=== PATIENT | female | born 1995 | race Caucasian/White ===

== ENCOUNTER 2019-01-28 07:30 | Inpatient (IN) ==
[2019-01-28] MEDS ORDERED: ONDANSETRON 4 MG/2 ML VIAL IV PRN ×2 (08:26→15:44)
[2019-01-28] MEDS ORDERED: LACTATED RINGERS 1,000 ML IV PRN (08:26)
[2019-01-28] MEDS ORDERED: NALOXONE 0.4 MG/ML VIAL IV PRN (08:28)
[2019-01-28] MEDS ORDERED: ePHEDrine 50 MG/ML AMP IV PRN ×2 (08:28)
[2019-01-28] MEDS ORDERED: diphenhydrAMINE 50 MG/1 ML VIAL IV PRN ×2 (08:28)
[2019-01-28] MEDS ORDERED: hydrOXYzine HCL 25 MG/1 ML VIAL IM PRN (08:28)
[2019-01-28] MEDS ORDERED: CITRIC ACID/SODIUM CITRATE 30 ML UDCUP PO ONE (08:28)
[2019-01-28] MEDS ORDERED: LACTATED RINGERS 250 ML IV PRN (08:28)
[2019-01-28] MEDS ORDERED: ONDANSETRON 4 MG/2 ML VIAL IV ONE (08:28)
[2019-01-28] MEDS ORDERED: FAMOTIDINE 20 MG/2 ML VIAL IV ONE (08:28)
[2019-01-28] MEDS ORDERED: PROMETHAZINE 25 MG/1 ML VIAL IM ONE (08:28)
[2019-01-28] MEDS ORDERED: LACTATED RINGERS 1,000 ML IV SCH ×2 (08:30)
[2019-01-28] MEDS ORDERED: fentaNYL 2 MCG/ROPIV 0.2% EPID 100 ML EPIDURAL SCH (08:30)
[2019-01-28] MEDS ORDERED: OXYTOCIN/LR 20 UNIT/1,000 ML BAG IV SCH (08:30)
[2019-01-28 08:45] LABS: Basophils % 0.1 % (0.0-0.8); Eosinophils # 0.1 10*3/uL (0.0-0.87); Eosinophils % 0.9 % (0.00-10.9); Hematocrit 33.6 VOL% (35.7-47.0); Hemoglobin 10.3 GM/DL (12.0-16.0); Immature Granulocytes % 0.5 %; Immature Granulocytes Absolute 0.05 #; Lymphocytes # 1.3 10*3/uL (1.4-4.0); Lymphocytes % 14.3 % (21.3-54.2); Mean Corpuscular HGB Conc 30.7 GM/DL (32-36); Mean Corpuscular Volume 86.6 FL (87-102); Mean Platelet Volume 10.3 FL (9.6-12.0); Monocytes % 6.8 % (1.7-12.7); Neutrophils % 77.4 % (38.7-73.9); Platelet Count 188 T/CUMM (130-400); Red Blood Count 3.88 MC/CUMM (3.8-5.5); Red Cell Distribution Width 14.4 % (9.3-17.3); White Blood Count 9.4 T/CUMM (4-12)
[2019-01-28 12:18] LABS: Apearance,Urine CLEAR (Clear); Bilirubin,Urine Negative (Negative); Blood, Urine Negative (Negative); Glucose,Urine (UA) Negative (Negative); Ketones,Urine 20 mg/dL (Negative); Nitrite,Urine Negative (Negative); Protein,Urine Negative; RBC,Urine 1 /HPF (0-4); Squamous Epithelial Cell,Urine Occasional /HPF (0-10); Urine Color Straw (Yellow); Urine Specific Gravity 1.005 (1.001-1.035); Urine Urobilinogen < 2.0 EU/DL (0.2-1.0); WBC,Urine 1 /HPF (0-6)
[2019-01-28] MEDS ORDERED: miSOPROStol 200 MCG TABLET ONE (15:01)
[2019-01-28] MEDS ORDERED: CARBOPROST TROMETHAMINE 250 MCG/ML AMP IM ONE (15:02)
[2019-01-28] MEDS ORDERED: METHYLERGONOVINE 0.2 MG/1 ML AMP ONE (15:02)
[2019-01-28] MEDS ORDERED: BUTORPHANOL 1 MG/ML VIAL ONE (15:03)
[2019-01-28] MEDS ORDERED: LIDOCAINE 1% 50 ML VIAL ONE (15:03)
[2019-01-28] MEDS ORDERED: oxyCODONE/ACETAMINOPHEN 5-325 MG TABLET PO PRN ×2 (15:44)
[2019-01-28] MEDS ORDERED: BENZOCAINE 20%/MENTHOL 0.5% SPRAY 56 GM CAN TOP PRN (15:44)
[2019-01-28] MEDS ORDERED: LANOLIN 50% CREAM 0.3 OZ TUBE TOP PRN (15:44)
[2019-01-28] MEDS ORDERED: DIPH/TET/ACEL PERT BOOSTER VACCINE 0.5 ML VIAL IM ONE (15:44)
[2019-01-28] MEDS ORDERED: MEASLES/MUMPS/RUBELLA VACCINE 0.5 ML VIAL SUBCUT ONE (15:44)
[2019-01-28] MEDS ORDERED: HYDROCORTISONE 2.5% RECTAL CREAM 30 GM TUBE TOP PRN (15:44)
[2019-01-28] MEDS ORDERED: ACETAMINOPHEN 325 MG TABLET PO PRN (15:44)
[2019-01-28] MEDS ORDERED: BISACODYL 10 MG SUPP RECTAL PRN (15:44)
[2019-01-28] MEDS ORDERED: RHO(D) IMMUNE GLOBULIN 300 MCG SYRINGE IM ONE (16:00)
[2019-01-28] MEDS ORDERED: OXYTOCIN/LR 20 UNIT/1,000 ML BAG IV ONE (16:00)
[2019-01-28] MEDS ORDERED: WITCH HAZEL PADS 100/JAR TOP PRN (16:30)
[2019-01-28] MEDS: IBUPROFEN 800 MG TABLET PO PRN (20:52)
[2019-01-28] MEDS: DOCUSATE SODIUM 100 MG CAPSULE PO SCH (20:52)
[2019-01-29 05:26] LABS: Basophils % 0.2 % (0.0-0.8); Eosinophils # 0.1 10*3/uL (0.0-0.87); Eosinophils % 1.2 % (0.00-10.9); Hematocrit 29.8 VOL% (35.7-47.0); Hemoglobin 9.4 GM/DL (12.0-16.0); Immature Granulocytes % 0.4 %; Immature Granulocytes Absolute 0.05 #; Lymphocytes # 1.6 10*3/uL (1.4-4.0); Lymphocytes % 13.7 % (21.3-54.2); Mean Corpuscular HGB Conc 31.5 GM/DL (32-36); Mean Corpuscular Volume 85.4 FL (87-102); Mean Platelet Volume 10.9 FL (9.6-12.0); Monocytes % 7.8 % (1.7-12.7); Neutrophils % 76.7 % (38.7-73.9); Platelet Count 164 T/CUMM (130-400); Red Blood Count 3.49 MC/CUMM (3.8-5.5); Red Cell Distribution Width 14.1 % (9.3-17.3); White Blood Count 11.6 T/CUMM (4-12)
[2019-01-29] MEDS: DOCUSATE SODIUM 100 MG CAPSULE PO SCH ×2 (08:44→20:34)
[2019-01-29] MEDS: IBUPROFEN 800 MG TABLET PO PRN (19:25)
[2019-01-30] MEDS: DOCUSATE SODIUM 100 MG CAPSULE PO SCH (10:02)
[2019-01-30 11:32] VITALS: BP 125/67
== END 2019-01-30 13:50 | disposition home or self-care (01) | DRG 560 ==
LOC: N.LAB 07:30 → N.LD 07:39 → N.OB 18:56
PROVIDERS: ADMIT Obstetrics & Gynecology; ATTEND Obstetrics & Gynecology